=== PATIENT | male | born 1985 | race Asian ===

== ENCOUNTER 2019-08-30 12:19 | Emergency (ER) | payer OTHER ==
[~2019-08-30] VITALS: Ht 175.3 cm; Wt 86.3 kg
[2019-08-30 12:20] VITALS: BP 129/89
[2019-08-30] MEDS ORDERED: IBUP80TA PO ×2 (14:48→15:07)
[2019-08-30] MEDS ORDERED: CYCL5TAB PO ×2 (14:48→15:07)
[2019-08-30] MEDS ORDERED: LIDO5DIS41 TD ×2 (14:48→15:07)
[2019-08-30] MEDS ORDERED: CYCLOBENZAPRINE 5MG TABLET PO ONE (15:00)
[2019-08-30] MEDS ORDERED: LIDOCAINE 5% (LIDODERM) PATCH TD ONE (15:00)
[2019-08-30] MEDS ORDERED: IBUPROFEN 800 MG TAB PO ONE (15:00)
== END 2019-08-30 15:12 | disposition home or self-care (01) ==
LOC: M ED 12:19
DX: M54.5 Low back pain (principal)